=== PATIENT | female | born 1940 | race Caucasian/White ===

== ENCOUNTER 2016-12-07 07:02 | Day surgery (SDC) | payer MEDICARE ==
[~2016-12-07 07:02] MED LIST: FENTANYL 100 MCG/2 ML VIAL ONE; IV START KIT ONE; LACTATED RINGERS 1,000 ML ONE; LIDOCAINE Viscous 2% 15 ML UDCUP ONE; MIDAZOLAM HCL 5 MG/5 ML VIAL ONE
[2016-12-07] MEDS ORDERED: LIDOCAINE Viscous 2% 15 ML UDCUP PO PRN (07:08)
[2016-12-07] MEDS ORDERED: MIDAZOLAM HCL 5 MG/5 ML VIAL IV PRN (07:08)
[2016-12-07] MEDS ORDERED: FENTANYL 250 MCG/5 ML AMP IV PRN (07:08)
[2016-12-07] MEDS ORDERED: LACTATED RINGERS 1,000 ML IV SCH (07:15)
[2016-12-07] MEDS ORDERED: FENTANYL 100 MCG/2 ML VIAL ONE (07:15)
[2016-12-07 12:00] LABS: HELICOBACTER PYLORII DETECTION NEGATIVE (NEGATIVE)
--- NOTE | 2016-12-11 13:09 | SURGPATH ---
[facility] [address] [place] [id number] Patient Name: LUIS E CARTER MR#: [id number] : 1940 Gender: F Specimen #: [id number] Collected: 12/07/2016 Received: 12/10/2016 Reported: 12/11/2016 Submitting Phys: CARI KING Copy To Phys: [facility] ISNDI BENSON Clinical History / Pre-Operative Diagnosis: DYSPHAGIA; RULE OUT GASTRITIS Specimen Source / Surgical Procedure Performed: ANTRAL BIOPSY Interpretation: STOMACH, ANTRUM, BIOPSY: - GASTRIC MUCOSA WITH NO DIAGNOSTIC ABNORMALITY Electronically Signed Out Alie Prajapati M.D. Gross Description: The specimen is received in a formalin filled container labeled with the patient's name and "antral biopsy". Two thibodeaux-johnson biopsies are 0.4 and 0.5 cm. Totally embedded in one cassette. Donte Strong PJuanAJuan Microscopic Description: Sections show fragments of gastric mucosa. There is normal mucosal architecture and no significant inflammation. No Helicobacter organisms are identified and there is no intestinal metaplasia or dysplasia. 1: [id number] R47.02
== END 2016-12-07 08:39 | disposition home or self-care (01) ==
LOC: SDC 07:02
PROVIDERS: ATTEND Internal Medicine Gastroenterology
PROC: 0DB68ZX Excision of Stomach, Via Natural or Artificial Opening Endoscopic, Diagnostic (ICD-10-PCS; principal; 2016-12-07)
DX: Q39.4 Esophageal web (principal); K29.80 Duodenitis without bleeding; K29.60 Other gastritis without bleeding; E11.9 Type 2 diabetes mellitus without complications; E03.9 Hypothyroidism, unspecified; E78.5 Hyperlipidemia, unspecified; Z88.2 Allergy status to sulfonamides; Z79.899 Other long term (current) drug therapy